=== PATIENT | female | born 1970 | race Caucasian/White ===

== ENCOUNTER 2018-02-08 08:26 | Emergency (ER) | payer BC ==
--- NOTE | 2018-02-08 09:01 | ERPHSYRPT ---
- History of Present Illness Time Seen by Provider: 02/08/18 08:49 Source: patient Exam Limitations: no limitations Patient Subjective Stated Complaint: Pt states she found a stray kitten in the lentz of a car. They got the kitten out and it was very frightened. When she tried to pick the kitten up, it bit her on the right hand. The bite on the right index finger is now very tender, red, and slightly swollen. Triage Nursing Assessment: Pt alert and oriented x3. skin pink warm and dry. afebrile. bite cota noted to right index finger and thumb. second knuckle of right index finger red and slightly swollen Physician History: The patient is a right-handed 47-year-old female complaining that she was bitten by a stray kitten on the right index finger on Thursday. She found the kitten in the front of a car on Thursday and brought it home because her daughter love's kittens and wanted to try to take care of It. They kept the kitten in the garage and tried to feed it and had it. Every time they would come close to the kitten it would hiss. The patient tried to lease picker the kitten on Thursday and when she did pick it up, the kitten bit her. Her finger was swollen and part of her hand was swollen on Thursday. The swelling has gone down but the finger is painful and has some redness over a knuckle. The patient's tetanus vaccination is unknown. The kitten's rabies vaccination status is unknown. This was clearly a provoked bite. Her past medical history is significant for depression. Timing/Duration: day(s) (3), sudden, worse Quality: burning, painful Severity: moderate Location: hands (right index finger) Possible Causes: other (cat bite) Allergies/Adverse Reactions: No Known Drug Allergies Allergy (Unverified 02/08/18 08:40) Home Medications: Fluticasone Propionate [Flonase Nasal] 1 spray DAILY 02/08/18 [History] Fluticasone/Vilanterol [Breo Ellipta 200-25 Mcg INH] 1 puff IH DAILY 02/08/18 [ History] Venlafaxine HCl [Venlafaxine HCl ER] 1 cap PO DAILY 02/08/18 [History] Hx Tetanus, Diphtheria Vaccination/Date Given: No Hx Influenza Vaccination/Date Given: No Hx Pneumococcal Vaccination/Date Given: No - Review of Systems Constitutional: No Fever, No Chills Eyes: No Symptoms Ears, Nose, & Throat: No Symptoms Respiratory: No Cough, No Dyspnea Cardiac: No Chest Pain, No Edema, No Syncope Abdominal/Gastrointestinal: No Abdominal Pain, No Nausea, No Vomiting, No Diarrhea Genitourinary Symptoms: No Dysuria Musculoskeletal: No Back Pain, No Neck Pain Skin: Cellulitis Neurological: No Dizziness, No Focal Weakness, No Sensory Changes Psychological: No Symptoms Endocrine: No Symptoms Hematologic/Lymphatic: No Symptoms Immunological/Allergic: No Symptoms All Other Systems: Reviewed and Negative - Past Medical History Pertinent Past Medical History: Yes Neurological History: No Pertinent History ENT History: No Pertinent History Cardiac History: No Pertinent History Respiratory History: Asthma Endocrine Medical History: No Pertinent History Musculoskeletal History: No Pertinent History GI Medical History: No Pertinent History History: No Pertinent History Psycho-Social History: Anxiety, Depression Female Reproductive Disorders: No Pertinent History - Past Surgical History Past Surgical History: Yes Neuro Surgical History: No Pertinent History Cardiac: No Pertinent History Respiratory: No Pertinent History Gastrointestinal: Hemorrhoidectomy Genitourinary: No Pertinent History Musculoskeletal: No Pertinent History Female Surgical History: Section, Tubal Ligation Other Surgical History: uterine ablasion - Social History Smoking Status: Never smoker Exposure to second hand smoke: No Drug Use: none Patient Lives Alone: No - Female History Hx Last Menstrual Period: October 2017 Hx Now: No - Nursing Vital Signs Nursing Vital Signs: Initial Vital Signs Temperature 98.6 F 02/08/18 08:32 Pulse Rate 85 02/08/18 08:32 Respiratory Rate 16 02/08/18 08:32 Blood Pressure 132/72 02/08/18 08:32 O2 Sat by Pulse Oximetry 97 02/08/18 08:32 Pain Scale Pain Intensity 3 - Physical Exam General Appearance: no apparent distress, alert Eye Exam: PERRL/EOMI, eyes nml inspection Ears, Nose, Throat Exam: normal ENT inspection, pharynx normal, moist mucous membranes Neck Exam: normal inspection, non-tender, supple, full range of motion Respiratory Exam: normal breath sounds, lungs clear, No respiratory distress Cardiovascular Exam: regular rate/rhythm, normal heart sounds Gastrointestinal/Abdomen Exam: soft, mass, No tenderness Pelvic Exam: not done Rectal Exam: not done Back Exam: normal inspection, normal range of motion, No CVA tenderness, No vertebral tenderness Extremity Exam: normal range of motion, joint swelling, swelling, tenderness ( right index finger with IP joint swelling) Neurologic Exam: alert, oriented x 3, cooperative, normal mood/affect, sensation nml, No motor deficits Skin Exam: normal color, warm, dry SpO2 Interpretation: normal SpO2: 97 Oxygen Delivery: Room Air - Departure Time of Disposition: 09:07 Departure Disposition: Home Clinical Impression: Cat bite of index finger Condition: Stable Critical Care Time: No Referrals: MIKE ALBARRAN, [employer] [Primary Care Provider] - Additional Instructions: You have a mildly infected cat bite to your right index finger. Take azithromycin 500 mg on day one followed by azithromycin 250 mg daily for 4 more days. Take Tylenol and ibuprofen as needed. You were given a tetanus vaccination in the ER. Please take the kitten to [facility]. I do not think there is any concern for rabies because this was a provoked bite. However , when this kitten is euthanized, the [facility] help you with a rabies examination of the kitten. Follow-up as needed. Prescriptions: Azithromycin 250 mg [Zithromax 250 MG TABLET] 250 mg PO ZPACK #6 tablet
[2018-02-08] MEDS ORDERED: Adacel Vial IM ONE ×2 (09:07→09:13)
[2018-02-08 09:50] VITALS: BP 116/87; PULSE 74; O2SAT 96
== END 2018-02-08 09:50 | disposition home or self-care (01) ==
LOC: ED 08:26
DX: S61.250A Open bite of right index finger without damage to nail, initial encounter (principal); L08.9 Local infection of the skin and subcutaneous tissue, unspecified; W55.01XA Bitten by cat, initial encounter
CPT/HCPCS: 90471; 90715; 96372; 99284

== ENCOUNTER 2020-01-21 22:27 | Emergency (ER) | payer BC ==
--- NOTE | 2020-01-21 23:00 | ERPHSYRPT ---
- History of Present Illness Time Seen by Provider: 01/21/20 22:55 Source: patient Exam Limitations: no limitations Physician History: About 1 hour ago at home pt dropped a letter program engineer which lacerated the distal medial aspect of her right thigh with resultant pain in her right knee. Pt denies tingling/numbness of her right foot. Last tetanus is within 5 years. Allergies/Adverse Reactions: No Known Drug Allergies Allergy (Verified 01/21/20 23:02) Home Medications: Fluticasone Propionate [Flonase Nasal] 1 spray DAILY 02/08/18 [History] Fluticasone/Vilanterol [Breo Ellipta 200-25 Mcg INH] 1 puff IH DAILY 02/08/18 [History] Venlafaxine HCl [Venlafaxine HCl ER] 1 cap PO DAILY 02/08/18 [History] Atorvastatin Calcium [Lipitor 20MG Tablet] 20 mg PO DAILY 01/21/20 [History] Fexofenadine HCl [Maude] 180 mg PO DAILY 01/21/20 [History] Montelukast Sodium 10 mg [Singulair 10 MG] 10 mg PO DAILY 01/21/20 [History] Spironolactone 25 mg [Aldactone 25 MG] 25 mg PO DAILY 01/21/20 [History] Hx Tetanus, Diphtheria Vaccination/Date Given: No Hx Influenza Vaccination/Date Given: No Hx Pneumococcal Vaccination/Date Given: No - Review of Systems Skin: Other (laceration of right thigh tonight.) - Past Medical History Pertinent Past Medical History: Yes Neurological History: No Pertinent History ENT History: No Pertinent History Cardiac History: No Pertinent History Respiratory History: Asthma Endocrine Medical History: No Pertinent History Musculoskeletal History: No Pertinent History GI Medical History: No Pertinent History History: No Pertinent History Psycho-Social History: Anxiety, Depression Female Reproductive Disorders: No Pertinent History - Past Surgical History Past Surgical History: Yes Neuro Surgical History: No Pertinent History Cardiac: No Pertinent History Respiratory: No Pertinent History Gastrointestinal: Hemorrhoidectomy Genitourinary: No Pertinent History Musculoskeletal: No Pertinent History Female Surgical History: Section, Tubal Ligation Other Surgical History: uterine ablasion - Social History Smoking Status: Never smoker Exposure to second hand smoke: No Drug Use: none Patient Lives Alone: No - Nursing Vital Signs Nursing Vital Signs: Initial Vital Signs Temperature 98.4 F 01/21/20 22:45 Pulse Rate 70 01/21/20 22:45 Respiratory Rate 16 01/21/20 22:45 Blood Pressure 141/84 01/21/20 22:45 O2 Sat by Pulse Oximetry 99 01/21/20 22:45 Pain Scale Pain Intensity 6 - Physical Exam General Appearance: alert Hips Exam: right: normal range of motion Legs Exam: right leg: normal range of motion Knees Exam: right knee: normal range of motion Ankle Exam: right ankle: normal range of motion Foot Exam: right foot: normal range of motion Neuro/Tendon Exam: normal sensation Mental Status Exam: alert, cooperative Skin Exam: laceration (1 cm laceration to distal medial aspect of right thigh with tenderness over the medial aspect of the right knee.) SpO2 Interpretation: normal SpO2: 99 O2 Delivery: Room Air Procedures - Laceration/Wound Repair Right Thigh Wound Location: Right, upper leg Wound Length (cm): 1 Wound's Depth, Shape: superficial Wound Explored: clean Irrigated: Yes Hibiclens Prep: Yes Anesthesia: 1% lidocaine w/ Epi Volume Anesthetic (ccs): 1 Wound Repaired With: sutures Suture Size/Type: 4-0, prolene Number of Sutures: 3 Layer Closure?: No - Course Nursing assessment & vital signs reviewed: Yes - Radiology Exams Right Knee X-ray Interpretation: Interpreted by me, No Fracture Ordered Tests: Active Orders 24 hr Category Date Time Status Prepare for Sutures STAT Care 01/21/20 23:01 Active Sutures STAT Care 01/21/20 23:02 Active Wound Care STAT Care 01/21/20 23:01 Active KNEE (3 VIEWS) Stat Exams 01/21/20 23:00 Ordered Medication Summary Generic Name Dose Route Start Last Admin Trade Name Freq PRN Reason Stop Dose Admin Clindamycin HCl 300 mg 01/22/20 00:29 Cleocin 150 Mg Capsule PO 01/22/20 00:30 STAT ONE Discontinued Medications Generic Name Dose Route Start Last Admin Trade Name Freq PRN Reason Stop Dose Admin Hydrocodone Bitart/Acetaminophen 2 tab 01/21/20 23:01 01/21/20 23:11 Bosler 5/325 Mg PO 01/21/20 23:02 2 tab STAT ONE Administration Hydrocodone Bitart/Acetaminophen Confirm 01/21/20 23:10 Bosler 5/325 Mg Administered 01/21/20 23:11 Dose 2 tab .ROUTE .STK-MED ONE Clindamycin HCl 300 mg 01/21/20 23:02 01/21/20 23:12 Cleocin 150 Mg Capsule PO 01/21/20 23:03 300 mg STAT ONE Administration Clindamycin HCl Confirm 01/21/20 23:10 Cleocin 150 Mg Capsule Administered 01/21/20 23:11 Dose 300 mg .ROUTE .STK-MED ONE - Progress Progress: improved Counseled pt/family regarding: rad results - Departure Departure Disposition: Home Clinical Impression: 1 cm laceration to right thigh Condition: Stable Critical Care Time: No Referrals: MIKE ALBARRAN NP [Primary Care Provider] - Instructions: Laceration Repair With Stitches (DC) Additional Instructions: Follow up with private doctor tomorrow. Have sutures removed in 10 days. Keep wound clean & dry. Neosporin & bandage daily for the next 10 days. Prescriptions: clindamycin HCL [Cleocin HCl] 300 mg PO Q6H #28 capsule
[2020-01-21] MEDS ORDERED: NORCO 5/325 MG PO ONE (23:01)
[2020-01-21] MEDS ORDERED: CLEOCIN 150 MG CAPSULE PO ONE (23:02)
[2020-01-21] MEDS ORDERED: CLEOCIN 150 MG CAPSULE ONE (23:10)
[2020-01-21] MEDS ORDERED: NORCO 5/325 MG ONE (23:10)
[2020-01-22] MEDS ORDERED: CLEOCIN 150 MG CAPSULE PO ONE (00:29)
[2020-01-22] MEDS ORDERED: CLEOCIN 150 MG CAPSULE ONE (00:32)
[2020-01-22 00:49] VITALS: BP 110/88; PULSE 84; O2SAT 97
--- NOTE | 2020-01-22 07:58 | XRAY ---
Indication: Laceration. Comparison: None 2 view right knee demonstrates normal bones, articulation, and soft tissues. Specifically no radiopaque foreign body.
== END 2020-01-22 00:51 | disposition home or self-care (01) ==
LOC: ED 22:27
DX: S71.111A Laceration without foreign body, right thigh, initial encounter (principal); W22.8XXA Striking against or struck by other objects, initial encounter; Y93.89 Activity, other specified; Y92.9 Unspecified place or not applicable; M25.561 Pain in right knee; R20.0 Anesthesia of skin
CPT/HCPCS: 12001; 73562; 99284; A9270-GY

== ENCOUNTER 2021-03-08 06:19 | Day surgery (SDC) | payer BC ==
[2021-03-08] MEDS ORDERED: Lactated Ringers 1,000 ML IV SCH (06:30)
[2021-03-08] MEDS ORDERED: DIPRIVAN 200 MG/20 ML IV ONE ×2 (07:47→08:20)
[2021-03-08 09:31] VITALS: BP 127/80; PULSE 68; O2SAT 100
--- NOTE | 2021-03-08 11:26 | OP ---
SURGERY DATE/TIME: 03/08/2021 0800 PREOPERATIVE DIAGNOSIS: Screening exam. POSTOPERATIVE DIAGNOSES: 1) Small polyps in the ascending and sigmoid colon. 2) Mild sigmoid diverticulosis. PROCEDURE: Colonoscopy with cold forceps biopsy. SURGEON: Dr. Lopez. ANESTHESIA: MAC. Medications given by anesthesia department. HISTORY: The patient is a 50 year-old white female presenting now for first screening colonoscopy. She was appraised of the risks of the procedure including the risk of perforation, phlebitis, untoward reaction to medication, bleeding and missed lesions. The patient verbalized her understanding and desired to have the procedure performed. DESCRIPTION OF PROCEDURE: The patient was given the medications by the anesthesia department. She had continuous pulse oximetry, ECG monitoring, intermittent blood pressure monitoring and tidal CO2 monitoring during the examination. She was placed in the left lateral decubitus position. A digital rectal examination was performed and revealed normal anal sphincter tone and no masses. The flexible Olympus pediatric colonoscope was used to intubate the rectum. A view of the colon was developed sequentially to the cecum. Upon insertion and withdrawal was noted a tiny polyp in the ascending colon and this was biopsied and destroyed using one pass with cold forceps biopsy forceps. There was also noted a larger area in the sigmoid colon that appeared to possibly be a mucosal fold but we biopsied it to be sure there was not any underlying adenomatous change. The scope was removed from the patient who tolerated the procedure well and was sent back to OP recovery in good condition. The prep was noted to be fair to good.
== END 2021-03-08 09:40 | disposition home or self-care (01) ==
LOC: SDC 06:19
PROVIDERS: ATTEND Family Medicine
DX: Z12.11 Encounter for screening for malignant neoplasm of colon (principal); K57.30 Diverticulosis of large intestine without perforation or abscess without bleeding; D12.2 Benign neoplasm of ascending colon
CPT/HCPCS: 88305; J2704

== ENCOUNTER 2024-04-04 05:58 | Day surgery (SDC) | payer BC ==
[2024-04-04] MEDS: Lactated Ringers 1,000 ML IV SCH (06:57)
[2024-04-04] MEDS ORDERED: DIPRIVAN 200 MG/20 ML IV ONE ×2 (08:08→08:28)
[2024-04-04] MEDS ORDERED: Xylocaine-Mpf 2% 5 Ml Vial ONE (08:08)
[2024-04-04] MEDS ORDERED: Versed 2 MG/2 ML Injection ONE (08:08)
[2024-04-04 09:20] VITALS: RESP 16
[2024-04-04 09:35] VITALS: BP 135/78; PULSE 58; TEMP 98.1; O2SAT 97
--- NOTE | 2024-04-05 11:01 | OP ---
SURGERY DATE/TIME: 04/04/2024 1849 - [id number] PREOPERATIVE DIAGNOSES: 1) Gastroesophageal reflux. 2) History of colon polyps. POSTOPERATIVE DIAGNOSES: 1) Mild gastritis. 2) Small transverse colon polyp. 3) Sigmoid diverticulosis. INDICATIONS: The patient is a 53-year-old white female who presents now for endoscopic evaluation. She reports she had polyps 3 years ago and she wishes to be reevaluated at this time. She also reports she has had a couple of years of problems with reflux but is known to take Wegovy. The patient was felt to need to have an endoscopic evaluation. She was apprised of the risks of the procedure, the risk of perforation, phlebitis, untoward reaction to medication, bleeding, and missed lesions. The patient verbalized her understanding and desired to have the procedure performed. DESCRIPTION OF PROCEDURE AND FINDINGS: The patient was given medication by the anesthesia department. She had continuous pulse oximetry, ECG monitoring, and intermittent blood pressure monitoring, and end-tidal CO2 monitoring during the examination. She was placed in left lateral decubitus position. Bite blocks were placed. Flexible Olympus gastroscope was used to intubate the oropharynx. A view of the larynx was obtained and was normal. The scope was easily introduced in the esophagus which appeared to be normal throughout its length. The stomach was entered where the gastric bed was suctioned dry. The stomach was re-insufflated and the scope was passed along the greater curvature of the stomach to the antrum. Pylorus was intubated and duodenum was inspected and found to be normal. Scope was withdrawn toward the stomach again. Retroflex view was obtained of the lesser curvature, fundus, and cardia regions of the stomach and these appeared to be essentially normal. Biopsies were obtained from the gastric antrum to rule out the presence of Helicobacter pylori-type organisms. The scope was removed from the patient. Next, a digital rectal examination was performed and revealed normal anal sphincter tone and no masses. Flexible Olympus videocolonoscope was used to intubate the rectum. A view of the colon was developed sequentially to the cecum, including the short distance of terminal ileum. Upon insertion and withdrawal, there was noted to be a small polyp in the transverse colon. This was biopsied using cold biopsy technique. There was also noted to be a small moderate in number diverticula in the sigmoid colon. No other mucosal lesions being noted, the scope was removed. The patient tolerated the procedure well and was sent back to outpatient recovery in good condition. The prep was noted to be fairly good.
== END 2024-04-04 09:42 | disposition home or self-care (01) ==
LOC: SDC 05:58
PROVIDERS: ATTEND Family Medicine
DX: Z09 Encounter for follow-up examination after completed treatment for conditions other than malignant neoplasm (principal); Z86.010 Personal history of colon polyps; K21.9 Gastro-esophageal reflux disease without esophagitis; K29.70 Gastritis, unspecified, without bleeding; D12.3 Benign neoplasm of transverse colon; K57.30 Diverticulosis of large intestine without perforation or abscess without bleeding
CPT/HCPCS: J2250; J2704